=== PATIENT | female | born 1935 | race Caucasian/White ===

== ENCOUNTER 2024-06-15 11:39 | Observation (INO) | payer MEDICARE, OTHER ==
[2024-06-15] MEDS: Ondansetron 4 MG/2 ML SDV IVPUSH ONE (11:48)
[2024-06-15 12:06] LABS: BASOPHILS ABSOLUTE AUTO 0.02 K/uL (0.00-0.20); BASOPHILS PERCENT AUTO 0.3 % (0.0-2.0); EOSINOPHILS ABSOLUTE AUTO 0.05 K/uL (0.00-0.50); EOSINOPHILS PERCENT AUTO 0.7 % (0.0-5.0); HEMATOCRIT 29.9 % (34.0-46.0); HEMOGLOBIN 9.9 g/dL (11.7-15.5); IMMATURE GRAN ABSOLUTE AUTO 0.02 10^3/uL (0.00-0.04); IMMATURE GRAN PERCENT AUTO 0.3 % (0.0-0.4); LYMPHOCYTES ABSOLUTE AUTO 1.82 K/uL (0.50-3.50); LYMPHOCYTES PERCENT AUTO 24.5 % (10.0-50.0); MEAN CORPUSCULAR HEMOGLOBIN 34.1 pg (28.2-33.3); MEAN CORPUSCULAR HGB CONC 33.1 g/dL (31.7-36.0); MEAN CORPUSCULAR VOLUME 103.1 fL (84.0-98.0); MONOCYTES ABSOLUTE AUTO 0.32 K/uL (0.00-1.00); MONOCYTES PERCENT AUTO 4.3 % (2.0-14.0); NEUTROPHILS ABSOLUTE AUTO 5.21 K/uL (1.40-7.00); NEUTROPHILS PERCENT AUTO 69.9 % (45.0-80.0); PLATELET COUNT,PLT 257 K/uL (150-350); RED CELL DISTRIBUTION WIDTH 16.4 % (11.2-14.1); WHITE BLOOD CELL COUNT,WBC 7.4 K/uL (4.0-10.2)
[2024-06-15 12:29] LABS: LACTIC ACID 1.2 mmol/L (0.4-2.0)
[2024-06-15 12:32] LABS: ALANINE AMINOTRANSFERASE,ALT 13 U/L (12-78); ALBUMIN 3.1 g/dL (3.4-5.0); ALKALINE PHOSPHATASE 47 IU/L (46-116); ASPARTATE AMNIOTRANSFERASE,AST 20 U/L (15-37); BILIRUBIN TOTAL 0.3 mg/dL (0.2-1.0); BLOOD UREA NITROGEN,BUN 58 mg/dL (7-18); CALCIUM 9.5 mg/dL (8.5-10.1); CHLORIDE,CL 105 mmol/L (98-107); CREATININE 2.23 mg/dL (0.51-1.17); GLUCOSE RANDOM 137 mg/dL (70-99); PRO B-TYPE NATRIUR PEPT,BNPPRO 3704 pg/mL (0-125); PROTEIN TOTAL,TP 6.5 g/dL (6.4-8.2); SODIUM,NA 142 mmol/L (136-145)
[2024-06-15 12:33] LABS: ESTIMATED GFR 21 mL/min (>=60)
[2024-06-15] MEDS: Iopamidol 755 Mg/ML 100 ML Bottle IVPUSH STA (12:51)
[2024-06-15] MEDS: Sodium Chloride 0.9% 500 ML IV SCH (13:03)
[2024-06-15 13:05] LABS: INR 1.1 (0.9-1.1); PROTHROMBIN TIME 10.9 SEC (9.0-11.1); PTT,PARTIAL THROMBOPLSTIN TIME 21.9 SEC (23.8-34.4)
[2024-06-15] MEDS: Ondansetron 4 MG/2 ML SDV ONE (13:21)
[2024-06-15 16:33] LABS: ANION GAP 7.3 meq/L (7-15); CALCIUM 8.8 mg/dL (8.5-10.1); CARBON DIOXIDE,CO2 27.7 mmol/L (21.0-32.0); CREATININE 2.2 mg/dL (0.51-1.17); EST CRCL DRUG DOSING (CG) 16.88 mL/min; POTASSIUM,K 4.3 mmol/L (3.5-5.1)
[2024-06-15 17:06] LABS: APPEARANCE,URINE CLEAR; BILIRUBIN,URINE NEGATIVE (NEGATIVE); COLOR,URINE YELLOW; GLUCOSE,URINE NEGATIVE (NEGATIVE); KETONES,URINE NEGATIVE (NEGATIVE); LEUKOCYTE ESTERASE,URINE NEGATIVE (NEGATIVE); NITRITE,URINE NEGATIVE (NEGATIVE); OCCULT BLOOD,URINE NEGATIVE (NEGATIVE); PH,URINE 5.5 (5.0-9.0); PROTEIN,URINE NEGATIVE (NEGATIVE); UROBILINOGEN,URINE 0.2 E.U./dL (0.2-1.0)
== END 2024-06-15 18:05 | disposition home or self-care (01) ==
LOC: LL.ED 11:39 → LL.MS 14:11
PROVIDERS: ADMIT Physician Assistant; ATTEND Physician Assistant
DX: G45.9 Transient cerebral ischemic attack, unspecified (principal); N18.4 Chronic kidney disease, stage 4 (severe); I50.9 Heart failure, unspecified; R11.2 Nausea with vomiting, unspecified; R41.82 Altered mental status, unspecified; Z79.82 Long term (current) use of aspirin; Z79.899 Other long term (current) drug therapy
CPT/HCPCS: 36415; 70450; 70496; 80048; 80053; 81003; 83605; 83880; 84484; 85025; 85610; 85730; 87428-QW; 93005; 96361; 96374; 99285-25; J2405; J7040; Q9967

== ENCOUNTER 2024-09-24 10:25 | Inpatient (IN) | payer MEDICARE ==
[2024-09-24] MEDS: Sodium Chloride 0.9% 1,000 ML IV ONE (10:25)
[2024-09-24] MEDS: Sodium Chloride 0.9% 10 ML Syringe FLUSH PRN (10:30)
[2024-09-24] MEDS: Ondansetron 4 MG/2 ML SDV IVPUSH ONE (10:30)
[2024-09-24] MEDS ORDERED: Sodium Chloride 0.9% 500 ML IV SCH (10:45)
[2024-09-24 10:49] LABS: BASOPHILS ABSOLUTE AUTO 0.02 K/uL (0.00-0.20); BASOPHILS PERCENT AUTO 0.2 % (0.0-2.0); EOSINOPHILS ABSOLUTE AUTO 0.04 K/uL (0.00-0.50); EOSINOPHILS PERCENT AUTO 0.4 % (0.0-5.0); HEMOGLOBIN 10.3 g/dL (11.7-15.5); IMMATURE GRAN ABSOLUTE AUTO 0.02 10^3/uL (0.00-0.04); IMMATURE GRAN PERCENT AUTO 0.2 % (0.0-0.4); LYMPHOCYTES ABSOLUTE AUTO 1.56 K/uL (0.50-3.50); LYMPHOCYTES PERCENT AUTO 15.6 % (10.0-50.0); MEAN CORPUSCULAR HEMOGLOBIN 32.1 pg (28.2-33.3); MEAN CORPUSCULAR HGB CONC 31.2 g/dL (31.7-36.0); MEAN CORPUSCULAR VOLUME 102.8 fL (84.0-98.0); MONOCYTES ABSOLUTE AUTO 0.43 K/uL (0.00-1.00); MONOCYTES PERCENT AUTO 4.3 % (2.0-14.0); NEUTROPHILS ABSOLUTE AUTO 7.94 K/uL (1.40-7.00); NEUTROPHILS PERCENT AUTO 79.3 % (45.0-80.0); PLATELET COUNT,PLT 258 K/uL (150-350); RED BLOOD CELL COUNT 3.21 M/uL (3.77-5.09); RED CELL DISTRIBUTION WIDTH 18.2 % (11.2-14.1)
[2024-09-24 11:19] LABS: ALBUMIN 3.2 g/dL (3.4-5.0); BILIRUBIN TOTAL 0.4 mg/dL (0.2-1.0); CALCIUM 8.8 mg/dL (8.5-10.1); CARBON DIOXIDE,CO2 27.8 mmol/L (21.0-32.0); CREATININE 2.14 mg/dL (0.51-1.17); EST CRCL DRUG DOSING (CG) 15.39 mL/min; MAGNESIUM 2.3 mg/dL (1.8-2.4); POTASSIUM,K 4.2 mmol/L (3.5-5.1); PROTEIN TOTAL,TP 6.7 g/dL (6.4-8.2)
[2024-09-24] MEDS: Sodium Chloride 0.9% 1,000 ML IV SCH (11:25)
[2024-09-24 11:33] LABS: ANION GAP 11.4 meq/L (7-15)
[2024-09-24] MEDS: Promethazine 25 MG/ML SDV IM ONE (12:17)
[2024-09-24] MEDS: Ondansetron 4 MG/2 ML SDV ONE (12:25)
[2024-09-24] MEDS ORDERED: Sodium Chloride 0.9% 250 ML IV SCH (12:45)
[2024-09-24] MEDS ORDERED: Ondansetron 4 MG/2 ML SDV IVPUSH PRN (12:57)
[2024-09-24] MEDS ORDERED: Promethazine 25 MG/ML SDV IM PRN (13:04)
[2024-09-24] MEDS: Acetaminophen 325 MG Tab PO PRN (16:25)
[2024-09-24 17:48] LABS: APPEARANCE,URINE CLEAR; BILIRUBIN,URINE NEGATIVE (NEGATIVE); COLOR,URINE YELLOW; GLUCOSE,URINE NEGATIVE (NEGATIVE); KETONES,URINE NEGATIVE (NEGATIVE); LEUKOCYTE ESTERASE,URINE NEGATIVE (NEGATIVE); NITRITE,URINE NEGATIVE (NEGATIVE); OCCULT BLOOD,URINE NEGATIVE (NEGATIVE); PH,URINE 5.5 (5.0-9.0); PROTEIN,URINE NEGATIVE (NEGATIVE); UROBILINOGEN,URINE 0.2 E.U./dL (0.2-1.0)
[2024-09-24] MEDS: Donepezil 5 MG Tab PO SCH (19:37)
[2024-09-25] MEDS: Mirabegron 25 MG Tab Extended Release PO SCH (06:59)
[2024-09-25] MEDS: predniSONE 5 MG Tab PO SCH (07:02)
[2024-09-25] MEDS: atorvaSTATin 20 MG Tab PO SCH (07:02)
[2024-09-25] MEDS: Aspirin 81 MG Tab.EC PO SCH (07:02)
[2024-09-25] MEDS: Furosemide 20 MG Tab PO SCH (07:02)
[2024-09-25 08:18] LABS: BASOPHILS ABSOLUTE AUTO 0.01 K/uL (0.00-0.20); BASOPHILS PERCENT AUTO 0.1 % (0.0-2.0); HEMATOCRIT 27.8 % (34.0-46.0); HEMOGLOBIN 8.9 g/dL (11.7-15.5); IMMATURE GRAN ABSOLUTE AUTO 0.03 10^3/uL (0.00-0.04); IMMATURE GRAN PERCENT AUTO 0.3 % (0.0-0.4); LYMPHOCYTES ABSOLUTE AUTO 0.89 K/uL (0.50-3.50); LYMPHOCYTES PERCENT AUTO 9.8 % (10.0-50.0); MEAN CORPUSCULAR HEMOGLOBIN 33.2 pg (28.2-33.3); MEAN CORPUSCULAR VOLUME 103.7 fL (84.0-98.0); MONOCYTES ABSOLUTE AUTO 0.22 K/uL (0.00-1.00); MONOCYTES PERCENT AUTO 2.4 % (2.0-14.0); NEUTROPHILS ABSOLUTE AUTO 7.96 K/uL (1.40-7.00); NEUTROPHILS PERCENT AUTO 87.4 % (45.0-80.0); PLATELET COUNT,PLT 184 K/uL (150-350); RED BLOOD CELL COUNT 2.68 M/uL (3.77-5.09); RED CELL DISTRIBUTION WIDTH 18.4 % (11.2-14.1); WHITE BLOOD CELL COUNT,WBC 9.1 K/uL (4.0-10.2)
[2024-09-25 08:55] LABS: CALCIUM 8.1 mg/dL (8.5-10.1); CARBON DIOXIDE,CO2 21.6 mmol/L (21.0-32.0); CREATININE 2.01 mg/dL (0.51-1.17); EST CRCL DRUG DOSING (CG) 16.38 mL/min; POTASSIUM,K 4.4 mmol/L (3.5-5.1)
[2024-09-25 08:57] LABS: ANION GAP 15.8 meq/L (7-15)
[2024-09-25] MEDS: VANCOmycin 1 GM in Sodium Chloride 0.9% 250 ML IV ONE (13:39)
[2024-09-26 07:52] LABS: BASOPHILS ABSOLUTE AUTO 0.01 K/uL (0.00-0.20); BASOPHILS PERCENT AUTO 0.2 % (0.0-2.0); HEMOGLOBIN 8.6 g/dL (11.7-15.5); IMMATURE GRAN ABSOLUTE AUTO 0.02 10^3/uL (0.00-0.04); IMMATURE GRAN PERCENT AUTO 0.3 % (0.0-0.4); LYMPHOCYTES ABSOLUTE AUTO 0.99 K/uL (0.50-3.50); LYMPHOCYTES PERCENT AUTO 16.1 % (10.0-50.0); MEAN CORPUSCULAR HEMOGLOBIN 32.3 pg (28.2-33.3); MEAN CORPUSCULAR HGB CONC 31.9 g/dL (31.7-36.0); MEAN CORPUSCULAR VOLUME 101.5 fL (84.0-98.0); MONOCYTES ABSOLUTE AUTO 0.21 K/uL (0.00-1.00); MONOCYTES PERCENT AUTO 3.4 % (2.0-14.0); NEUTROPHILS ABSOLUTE AUTO 4.91 K/uL (1.40-7.00); PLATELET COUNT,PLT 148 K/uL (150-350); RED BLOOD CELL COUNT 2.66 M/uL (3.77-5.09); RED CELL DISTRIBUTION WIDTH 18.1 % (11.2-14.1); WHITE BLOOD CELL COUNT,WBC 6.1 K/uL (4.0-10.2)
[2024-09-26 08:15] LABS: ALBUMIN 2.2 g/dL (3.4-5.0); BILIRUBIN TOTAL 0.3 mg/dL (0.2-1.0); CALCIUM 8.3 mg/dL (8.5-10.1); CARBON DIOXIDE,CO2 25.1 mmol/L (21.0-32.0); CREATININE 2.06 mg/dL (0.51-1.17); EST CRCL DRUG DOSING (CG) 15.99 mL/min; POTASSIUM,K 4.3 mmol/L (3.5-5.1); PROTEIN TOTAL,TP 5.6 g/dL (6.4-8.2)
[2024-09-26 08:18] LABS: ANION GAP 11.2 meq/L (7-15)
[2024-09-26] MEDS: VANCOmycin 500 MG in Sodium Chloride 0.9% 100 ML IV SCH (13:37)
[2024-09-26] MEDS: Enoxaparin 30 MG/0.3 ML Syringe SUBCUT SCH (13:40)
[2024-09-27 07:33] LABS: BASOPHILS PERCENT AUTO 0.5 % (0.0-2.0)
[2024-09-27 07:58] LABS: CALCIUM 8.5 mg/dL (8.5-10.1); CARBON DIOXIDE,CO2 26.5 mmol/L (21.0-32.0); CREATININE 1.91 mg/dL (0.51-1.17); EST CRCL DRUG DOSING (CG) 17.24 mL/min; POTASSIUM,K 3.9 mmol/L (3.5-5.1)
[2024-09-27 08:02] LABS: ANION GAP 12.4 meq/L (7-15)
[2024-09-27] MEDS: cefTRIAXone 2 GM in Sodium Chloride 0.9% 100 ML IV SCH (11:05)
[2024-09-28 07:41] LABS: EOSINOPHILS ABSOLUTE AUTO 0.04 K/uL (0.00-0.50); HEMATOCRIT 26.7 % (34.0-46.0); HEMOGLOBIN 8.3 g/dL (11.7-15.5); IMMATURE GRAN ABSOLUTE AUTO 0.02 10^3/uL (0.00-0.04); IMMATURE GRAN PERCENT AUTO 0.5 % (0.0-0.4); LYMPHOCYTES ABSOLUTE AUTO 0.96 K/uL (0.50-3.50); LYMPHOCYTES PERCENT AUTO 23.2 % (10.0-50.0); MEAN CORPUSCULAR HEMOGLOBIN 31.3 pg (28.2-33.3); MEAN CORPUSCULAR HGB CONC 31.1 g/dL (31.7-36.0); MEAN CORPUSCULAR VOLUME 100.8 fL (84.0-98.0); MONOCYTES ABSOLUTE AUTO 0.31 K/uL (0.00-1.00); MONOCYTES PERCENT AUTO 7.5 % (2.0-14.0); NEUTROPHILS ABSOLUTE AUTO 2.81 K/uL (1.40-7.00); NEUTROPHILS PERCENT AUTO 67.8 % (45.0-80.0); PLATELET COUNT,PLT 164 K/uL (150-350); RED BLOOD CELL COUNT 2.65 M/uL (3.77-5.09); RED CELL DISTRIBUTION WIDTH 17.4 % (11.2-14.1); WHITE BLOOD CELL COUNT,WBC 4.1 K/uL (4.0-10.2)
[2024-09-28 08:09] LABS: CALCIUM 8.1 mg/dL (8.5-10.1); CARBON DIOXIDE,CO2 25.7 mmol/L (21.0-32.0); CREATININE 1.62 mg/dL (0.51-1.17); EST CRCL DRUG DOSING (CG) 19.76 mL/min; POTASSIUM,K 3.7 mmol/L (3.5-5.1)
[2024-09-28 15:15] LABS: WHITE BLOOD CELL COUNT,WBC 5.6 K/uL (4.0-10.2)
[2024-09-28 15:16] LABS: HEMATOCRIT 29.1 % (34.0-46.0); HEMOGLOBIN 9.2 g/dL (11.7-15.5); MEAN CORPUSCULAR HEMOGLOBIN 31.9 pg (28.2-33.3); RED BLOOD CELL COUNT 2.88 M/uL (3.77-5.09)
[2024-09-28 15:17] LABS: MEAN CORPUSCULAR HGB CONC 31.6 g/dL (31.7-36.0); PLATELET COUNT,PLT 182 K/uL (150-350); RED CELL DISTRIBUTION WIDTH 17.6 % (11.2-14.1)
[2024-09-28 15:24] LABS: NEUTROPHILS PERCENT AUTO 71.7 % (45.0-80.0)
[2024-09-28 15:25] LABS: EOSINOPHILS PERCENT AUTO 1.1 % (0.0-5.0); IMMATURE GRAN PERCENT AUTO 0.5 % (0.0-0.4); MONOCYTES PERCENT AUTO 5.2 % (2.0-14.0)
[2024-09-28 15:26] LABS: LYMPHOCYTES ABSOLUTE AUTO 1.18 K/uL (0.50-3.50); MONOCYTES ABSOLUTE AUTO 0.29 K/uL (0.00-1.00); NEUTROPHILS ABSOLUTE AUTO 4.02 K/uL (1.40-7.00)
[2024-09-28 15:27] LABS: BASOPHILS ABSOLUTE AUTO 0.03 K/uL (0.00-0.20); EOSINOPHILS ABSOLUTE AUTO 0.06 K/uL (0.00-0.50); IMMATURE GRAN ABSOLUTE AUTO 0.03 10^3/uL (0.00-0.04)
== END 2024-09-28 15:54 | DRG 392 ==
LOC: LL.ED 10:25 → LL.MS 12:55 → OBSVTOIN 09-26 10:44
PROVIDERS: ADMIT Emergency Medicine; ATTEND Physician Assistant Medical
DX: R19.7 Diarrhea, unspecified (principal); R11.2 Nausea with vomiting, unspecified; I13.0 Hypertensive heart and chronic kidney disease with heart failure and stage 1 through stage 4 chronic kidney disease, or unspecified chronic kidney disease; Z66 Do not resuscitate; I25.10 Atherosclerotic heart disease of native coronary artery without angina pectoris; E78.00 Pure hypercholesterolemia, unspecified; N18.9 Chronic kidney disease, unspecified; F41.9 Anxiety disorder, unspecified; F32.A Depression, unspecified; D63.1 Anemia in chronic kidney disease; D72.820 Lymphocytosis (symptomatic); D47.2 Monoclonal gammopathy; I50.9 Heart failure, unspecified; Z95.2 Presence of prosthetic heart valve; Z79.82 Long term (current) use of aspirin; Z79.899 Other long term (current) drug therapy
CPT/HCPCS: 36415; 74019; 80048; 80053; 80202; 81003; 82272; 83605; 83735; 83880; 84484; 85025; 87040; 87186; 93010; 93306; 96361; 96365; 96366; 96372; 96374; 96375; 97110-GO; 97161-GP; 97165-GO; 97530-GO; 97535-GO; 99223; 99232; 99233; 99239; 99285-25; A9270-GY; G0378; J0696; J1650; J2405; J2550; J3370; J7030; J7050; J7500; J7512; U0002